=== PATIENT | male | born 1990 | race Native Hawaiian/Other Pacific Islander ===

== ENCOUNTER 2024-01-08 09:01 | Emergency (ER) | payer MEDICAID, OTHER ==
[~2024-01-08] VITALS: Ht 182.9 cm; Wt 136.0 kg
[2024-01-08 09:28] VITALS: PULSE 104; RESP 18; O2SAT 98
[2024-01-08 11:44] LABS: Urine Bacteria None Seen /hpf (None Seen)
[2024-01-08 11:54] LABS: Urine Blood Negative /uL (Negative); Urine Clarity Clear (Clear); Urine Color Light-Yellow (Yellow); Urine Protein, UAD Negative (Negative); Urine Specific Gravity 1.016 (1.001-1.035); Urine Urobilinogen Normal (Negative); Urine WBC <1 /hpf (0 - 3)
[2024-01-08 11:56] LABS: Basophils # (auto) 0 10 ^3/uL (0-0.2); Eosinophils # (auto) 0.2 10 ^3/uL (0-0.8); Hemoglobin 15.4 g/dL (13.5-17.5); Mean Corpuscular Hgb Conc. 33.9 g/dL (32.0-36.0); Monocytes # (auto) 0.6 10 ^3/uL (0-1.3); Red Cell Distribution Width 15.4 % (11.8-14.3); White Blood Cell 8.9 10^3/uL (4.4-10.8)
[2024-01-08 11:57] LABS: Basophils % (auto) 0.1 % (0.0-2.0); Eosinophils % (auto) 1.9 % (0.0-7.0); Hematocrit 45.4 % (41.0-53.0); Lymphocytes # (auto) 1.8 10 ^3/uL (0.4-5.4); Lymphocytes % (auto) 20.4 % (10.0-50.0); Mean Corpuscular Hemoglobin 26.8 pg (28.0-32.0); Monocytes % (auto) 6.4 % (0.0-12.0); Neutrophils # (auto) 6.3 10 ^3/uL (1.6-8.6); Neutrophils % (auto) 71.2 % (37.0-80.0); Nucleated Red Blood Cells % 0.1 %; Red Blood Cells 5.75 10^6/uL (4.5-5.90)
[2024-01-08 12:03] LABS: Amphetamine Screen, Urine Pos (NEGATIVE); Barbiturate Scree,Urine Neg (NEGATIVE); Benzodiazephine Screen, Urine Neg (NEGATIVE); Cocaine Screen, Urine Neg (NEGATIVE); Opiate Scree,Urine Neg (NEGATIVE); Phencyclidine Screen, Urine Neg (NEGATIVE)
[2024-01-08 12:04] LABS: Cannabinoid Screen, Urine Neg (NEGATIVE)
[2024-01-08 12:28] LABS: Alanine Aminotransferase 25 U/L (7-40); Albumin 4.7 g/dL (3.2-4.8); Alkaline Phosphatase 73 U/L (46-116); Anion Gap 9 (5-15); Aspartate Aminotransferase 20 U/L (13-40); BUN/Creatinine Ratio 9.2 (10.0-20.0); Blood Urea Nitrogen 8 mg/dL (9-23); Calcium 9.7 mg/dL (8.7-10.4); Carbon Dioxide 21 mmol/L (20-30); Chloride 104 mmol/L (98-107); Glucose 92 mg/dL (74-106); Magnesium 1.7 mg/dL (1.6-2.6); Potassium 3.7 mmol/L (3.5-5.1); Sodium 134 mmol/L (136-145)
[2024-01-08 12:29] LABS: Bilirubin, Total 0.4 mg/dL (0.2-1.0); Total Protein 7.8 g/dL (5.7-8.2)
[2024-01-08] MEDS: cefTRIAXone 1GM/50ML D5W 50 ML IV ONE (12:36)
[2024-01-08] MEDS: FLUoxetine HCL 20 MG CAP PO ONE (12:36)
[2024-01-08] MEDS: risperiDONE 1 MG TAB PO ONE (12:36)
[2024-01-08] MEDS: SODIUM CHLORIDE 0.9% 1,000 ML IV ONE (12:37)
[2024-01-08 20:15] VITALS: PULSE 82; RESP 18; O2SAT 99
[2024-01-08] MEDS: QUEtiapine FUMARATE 25 MG TAB PO SCH (22:00)
[2024-01-09 07:37] VITALS: PULSE 69; RESP 18; O2SAT 99
[2024-01-09] MEDS: SERTRALINE HCL 50 MG TAB PO SCH (10:11)
[2024-01-09 20:45] VITALS: PULSE 99; RESP 16; O2SAT 99
[2024-01-10 08:58] VITALS: PULSE 99; RESP 18; O2SAT 99
[2024-01-11 07:48] VITALS: RESP 18
[2024-01-11 17:03] VITALS: BP 112/55; PULSE 81; RESP 18; TEMP 97.7; O2SAT 98
== END 2024-01-08 21:18 | disposition home or self-care (01) ==
LOC: EDBD 09:01 → ER 09:08
DX: F32.9 Major depressive disorder, single episode, unspecified (principal); R45.851 Suicidal ideations; J45.909 Unspecified asthma, uncomplicated; E78.5 Hyperlipidemia, unspecified; I10 Essential (primary) hypertension; F17.210 Nicotine dependence, cigarettes, uncomplicated; F12.10 Cannabis abuse, uncomplicated; F15.10 Other stimulant abuse, uncomplicated; Z79.899 Other long term (current) drug therapy
CPT/HCPCS: 36415; 71045; 80053; 80307; 81001; 83735; 85025; 96365; 96366; 99285; J0696; J7030